=== PATIENT | female | born 1995 | race Caucasian/White ===

== ENCOUNTER 2023-10-02 12:34 | Emergency (ER) | payer SELFPAY ==
[2023-10-02] MEDS: Ondansetron 4 MG Tab.DIS PO ONE (13:47)
[2023-10-02] MEDS: predniSONE 20 MG Tab PO ONE (14:59)
[2023-10-02] MEDS: Meclizine 25 MG Tab PO ONE (14:59)
== END 2023-10-02 15:21 | disposition home or self-care (01) ==
LOC: JP.ED 12:34
DX: G62.9 Polyneuropathy, unspecified (principal)
CPT/HCPCS: 99283; A9270; J7512; Q0162